=== PATIENT | male | born 1945 | race Caucasian/White ===

== ENCOUNTER 2021-11-01 13:24 | Emergency (ER) | payer MEDICARE ==
[~2021-11-01 13:24] MED LIST: ALDACTONE25 MG PO; CEFDINIR300 MG PO; ELIQUIS2.5 MG PO; FOLIC ACID1 MG PO; HYDROCODON-ACE1 EAC2 PO; LASIX20 MG PO; LEVOTHYROXINE75 MC1 PO; LOVAZA1 GM PO; METFORMIN HCL500 M1 PO; METOPROLOL SUCC50 MG PO; NITRO-TIME2.5 MG PO; PRINIVIL10 MG PO; ROSUVASTATIN CA40 MG PO; XANAX0.5 MG PO; ZYVOX600 MG PO
[2021-11-01 13:53] LABS: BASOPHIL 0.6 % (0-2); EOSINOPHIL 1.8 % (0-7); HCT 46.9 % (42.0-52.0); HGB 15.6 g/dl (13.2-18.0); LYMPHOCYTE 11.7 % (15-48); MCH 32.4 pg (25.0-31.0); MCHC 33.3 g/dL (32.0-36.0); MCV 97.5 fL (78.0-100.0); MONOCYTE 4.5 % (0-12); MPV 11.6 fL (6.0-9.5); NRBC 0; PLT 147 K/uL (150-400); RBC 4.81 M/uL (4.70-6.00); RDW 13.2 % (11.5-14.0); WBC 10.3 K/uL (4.0-10.5)
[2021-11-01 13:55] LABS: INR 1.13 (0.9-1.2); PROTHROMBIN TIME 14.2 SECONDS (11.9-13.9)
[2021-11-01 13:56] LABS: PTT 36.7 SECONDS (24.9-34.6)
[2021-11-01 14:09] LABS: ALBUMIN 3.7 g/dL (3.4-5.0); BILIRUBIN - TOTAL 0.4 mg/dL (0.2-1.0); BUN/CREAT RATIO (CALC) 20.3 RATIO; CREATININE 0.79 mg/dL (0.67-1.17); POTASSIUM 3.9 mmol/L (3.5-5.1); TOTAL PROTEIN 6.7 g/dL (6.4-8.2)
[2021-11-01 15:37] LABS: BILIRUBIN 2+ mg/dL (NEGATIVE); BLOOD 3+ Ery/uL (NEGATIVE); CLARITY CLEAR (CLEAR); COLOR YELLOW (YELLOW); GLUCOSE (U) TRACE mg/dL (NORMAL); LEUKOCYTES TRACE Leu/uL (NEGATIVE); NITRITE POSITIVE (NEGATIVE); PROTEIN 2+ mg/dL (NEGATIVE); SPECIFIC GRAVITY 1.025 (1.001-1.030); pH 6.5 (5.0-9.0)
[2021-11-01 15:44] LABS: BACTERIA 1+; URINARY RBC TNTC
[2021-11-01] MEDS ORDERED: FLOMAX0.4 MG PO (17:52)
[2021-11-01] MEDS ORDERED: ONDANSETRON ODT4 MG PO (17:52)
[2021-11-01] MEDS ORDERED: BACTRIM DS TAB1 EACH PO (17:52)
[2021-11-01 18:44] LABS: CORONAVIRUS 2019 SARS-COV-2 NEGATIVE (NEGATIVE); INFLUENZA A NAA NEGATIVE (NEGATIVE)
== END 2021-11-01 18:45 | disposition home or self-care (01) ==
LOC: FER 13:24
PROVIDERS: Internal Medicine
DX: N13.2 Hydronephrosis with renal and ureteral calculous obstruction (principal); N40.0 Benign prostatic hyperplasia without lower urinary tract symptoms; I25.10 Atherosclerotic heart disease of native coronary artery without angina pectoris; R91.8 Other nonspecific abnormal finding of lung field; Z88.5 Allergy status to narcotic agent; Z95.1 Presence of aortocoronary bypass graft; Z20.822 Contact with and (suspected) exposure to COVID-19
CPT/HCPCS: 36415; 71250; 80053; 81001; 83605; 84145; 84484; 85025; 85610; 85730; 87088; 93005; J0696; J1170; J1885; J2405; J2550; J7120; U0002